=== PATIENT | female | born 1980 | race Asian ===

== ENCOUNTER 2025-06-01 15:47 | Emergency (ER) | payer OTHER ==
[2025-06-01 16:05] VITALS: BP 100/52; PULSE 84; RESP 18; TEMP 97.3; BMI 20.7
[2025-06-01] MEDS ORDERED: FLUORESCEIN NA 1 EA STRIP ONE (16:45)
[2025-06-01] MEDS ORDERED: TETRACAINE 0.5% OPHTH SOLN 2 ML BOTTLE ONE (16:45)
[2025-06-01] MEDS: FLUORESCEIN NA 1 EA STRIP OU ONE (16:55)
[2025-06-01] MEDS: TETRACAINE 0.5% OPHTH SOLN 2 ML BOTTLE OU ONE (16:55)
== END 2025-06-01 17:13 | disposition home or self-care (01) ==
LOC: JER 15:47 → JERFT 15:47
DX: H52.13 Myopia, bilateral (principal); H53.143 Visual discomfort, bilateral
CPT/HCPCS: 99283-25